=== PATIENT | male | born 1975 | race Caucasian/White ===

== ENCOUNTER 2016-02-16 20:44 | Emergency (ER) | payer BC ==
[2016-02-16] MEDS ORDERED: HYDROcodone/Acetaminophen 10/325 mg Tablet ONE ×2 (21:32→21:43)
[2016-02-16] MEDS ORDERED: Naproxen 500 MG TAB ONE (21:32)
--- NOTE | 2016-02-16 22:13 | RAD ---
LEFT FOREARM TWO VIEWS 02/16/2016 HISTORY: Injury. Pain. COMPARISON: None. FINDINGS: There is an obliquely oriented fracture at the junction of the middle and distal third o f the left radial shaft. There is a distal fracture fragment, displaced laterally by 6 mm. No saar tional fracture noted. IMPRESSION Left radial shaft fracture. POS: [facility]
== END 2016-02-16 22:05 | disposition home or self-care (01) ==
LOC: MADERS 20:44
DX: S52.332A Displaced oblique fracture of shaft of left radius, initial encounter for closed fracture (principal); Z79.899 Other long term (current) drug therapy; X58.XXXA Exposure to other specified factors, initial encounter
CPT/HCPCS: 99283